=== PATIENT | female | born 1975 | race Caucasian/White ===

== ENCOUNTER 2017-12-02 20:44 | Emergency (ER) | payer OTHER, MEDICAID ==
[2017-12-02] MEDS: LORAZEPAM 2 MG INJ IV (21:36)
[2017-12-02] MEDS: ONDANSETRON 4 MG INJ IV (21:36)
[2017-12-02 22:08] LABS: CARBAMAZEPINE (TEGRETOL) 12.9 ug/ml (8.0-12.0)
== END 2017-12-03 00:45 | disposition home or self-care (01) ==
LOC: E/R 12-03 00:45
DX: G40.909 Epilepsy, unspecified, not intractable, without status epilepticus (principal); R40.2142 Coma scale, eyes open, spontaneous, at arrival to emergency department; R40.2252 Coma scale, best verbal response, oriented, at arrival to emergency department; R40.2362 Coma scale, best motor response, obeys commands, at arrival to emergency department
CPT/HCPCS: 70450; 80156; 96374; 96375; 99285-25